=== PATIENT | male | born 1955 | race Caucasian/White ===

== ENCOUNTER 2024-10-02 09:30 | Day surgery (SDC) | payer MEDICARE, MEDICAID, SELFPAY ==
[2024-09-29 08:53] VITALS: BMI 32.9
[2024-09-29 09:33] LABS: Collection Type, Urine Clean Catch
[2024-09-29 09:48] LABS: Basophils % (Auto) 0 % (0-2.5); Eosinophils % (Auto) 1 % (0-10); Hematocrit 46.6 % (41.0-53.0); Hemoglobin 16.5 g/dL (13.5-16.0); Immature Granulocytes % (Auto) 1 % (0-0); Immature Granulocytes Auto 0.03 Thou/mm3 (0.00-0.00); Lymphocytes # (Auto) 2.5 Thou/mm3 (1.0-4.8); Lymphocytes % (Auto) 42 % (10-50); Mean Corpuscular HGB Conc 35.4 g/dl (31.0-37.0); Mean Corpuscular Hemoglobin 30.9 pg (25.0-35.0); Mean Corpuscular Volume 87 fL (80-100); Monocytes # (Auto) 0.4 Thou/mm3 (0.0-0.8); Monocytes % (Auto) 6 % (0-12); Neutrophils # (Auto) 3.1 Thou/mm3 (1.8-7.7); Neutrophils % (Auto) 51 % (37-80); Nucleated Red Blood Cell % 0 /100 WBC (0); Platelet Count 173 Thou/mm3 (140-440); RDW Standard Deviation 37.9 fL (35.1-43.9); Red Blood Count 5.34 Miln/mm3 (4.50-5.90); White Blood Count 6.1 Thou/mm3 (3.8-10.6)
[2024-09-29 09:51] LABS: Bilirubin,Urine Negative (Negative); Blood,Urine Negative (Negative); Clarity,Urine Clear (Clear/Hazy); Color,Urine Lt-Yellow (Lt Yel-Yel); Glucose, Urine Negative (Negative); Ketones,Urine Negative (Negative); Leukocyte Esterase,Urine Negative (Negative); Nitrite,Urine Negative (Negative); PH,Urine 5.5 (5.0-7.0); Protein,Urine Negative (Neg - Trace); RBC,Urine 3 /hpf (0-3); Specific Gravity,Urine 1.025 (1.001-1.035); Squamous Epithelial Cell,Urine 4 /hpf (0-5); Urobilinogen,Urine Negative mg/dL (0.0-1.0); WBC,Urine 4 /hpf (0-5)
[2024-09-29 09:55] LABS: INR 1.1 (0.9-1.3); Partial Thromboplastin Time 28.5 Seconds (22.0-36.0); Prothrombin Time 11.7 Seconds (9.0-12.2)
[2024-09-29 09:58] LABS: Alanine Aminotransferase 43 U/L (10-49); Albumin, Serum 4.7 gm/dL (3.4-4.8); Albumin/Globulin Ratio 1.7 (1.2-2.2); Alkaline Phosphatase 47 U/L (46-116); Anion Gap 9 (7-16); Aspartate Amino Transferase 38 U/L (0-34); BUN/Creatinine Ratio 18 Ratio (12-20); Bilirubin,Total 1.1 mg/dL (0.3-1.2); Blood Urea Nitrogen 14 mg/dL (9-23); Calcium 10.2 mg/dL (8.3-10.6); Calcium (Corrected) 10.2 mg/dL (8.5-10.1); Carbon Dioxide 25.4 mMol/L (20.0-31.0); Chloride 108 mMol/L (98-107); Creatinine (Component) 0.8 mg/dL (0.6-1.3); Estimated Creatinine Clearance 121.2 mL/min (>60); Globulin 2.7 gm/dL (2.3-3.5); Glucose 113 mg/dL (74-106); Osmolality,Calculated 284 (275-295); Potassium 4.2 mMol/L (3.4-5.1); Sodium 142 mMol/L (136-145); Total Protein 7.4 gm/dL (5.7-8.2); eGFR > 60 See Note
--- NOTE | 2024-09-29 14:08 | SUR.PREOP ---
Pt notified to come in at 0930 on Wednesday for surgery.
--- NOTE | 2024-09-29 14:56 | SUR.PREOP ---
Cardiac history and records reviewed with Dr Garrido.
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
[2024-10-02] VITALS (12 sets, daily range): BP systolic 126–174; BP diastolic 86–104; PULSE 62–103; RESP 12–20; TEMP 36.2–36.5; O2SAT 95–100; BMI 32.8
--- NOTE | 2024-10-02 10:03 | SUR.PREOP ---
Patient expressed gratitude for prayer before their procedure.
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
--- NOTE | 2024-10-02 12:30 | SUR.PHASEI ---
1230 Patient arrived to recovery resting comfortably in [facility], on oxygen 8L via oxy mask with an oral airway in place, breathing unlabored, vital signs stable, dressing intact to abdomen; steri-strips, gauze, tegaderm, no bleeding noted, lung sounds clear upon auscultation, bilateral radial pulses present when palpated, report received from Michelle GLOVER/Farhana GLOVER and Dr. Garrido
--- NOTE | 2024-10-02 12:53 | SUR.PHASEI ---
Received report on pt. s/p surgery from Carlene Pelayo RN. Pt. is resting with eyes closed, responds to verbal commands, VSS, lap sites x5 to abd. CDI, lung sounds clear, equal expansion eula., pt. receiving 10 liters 02 via oxymask, weaned to 5 liters 02 and saturation 98%. No c/o pain or nausea at this time.
--- NOTE | 2024-10-02 12:53 | SUR.PHASEI ---
1253 Report given to Kari Black RN
[2024-10-02] MEDS: fentaNYL CIT INJ 50 mCg/ML AMP 2ML IV ×2 (13:16→13:25)
--- NOTE | 2024-10-02 14:37 | SUR.PHASEII ---
1437 Patient meets discharge criteria from recovery, awake and talking with staff, breathing unlabored, vital signs stable, per patient his pain is tolerable, dressing intact; no bleeding noted, patient drinking fluid; with is nausea at a tolerable level, patient assisted with dressing into his clothing by this continuity writer, discharge instructions given to patient and patients son with teach-back approach, both receptive of instructions, patients son signed discharge instructions. Patient given all his belongings prior to discharge, transported via wheelchair and left in a private vehicle.
--- NOTE | 2024-10-04 13:59 | PD.ANESPROG ---
Documentation for date of: 10/04/24 POST ANESTHESIA NOTE: Patient had GETA for lap cholecystectomy on 10/02/24. I just called his number for follow up but no answer. Omi Garrido MD Anesthesia Progress Note Progress Note Most recent Vital Signs: Last Vital Signs Temp 97.1 F 10/02/24 13:40 Pulse 90 10/02/24 14:10 Resp 14 10/02/24 14:10 BP 148/86 H 10/02/24 14:10 Pulse Ox 97 10/02/24 14:10 O2 Flow Rate 3 10/02/24 13:05
== END 2024-10-02 14:37 | disposition home or self-care (01) ==
PROVIDERS: PCP Nurse Practitioner Family; Referring Provider Specialist; Visit Provider Specialist
PROC: 0FT44ZZ Resection of Gallbladder, Percutaneous Endoscopic Approach (ICD-10-PCS; CPT 47562; principal; 2024-10-02 11:30)
DX: K80.10 Calculus of gallbladder with chronic cholecystitis without obstruction (principal); K66.0 Peritoneal adhesions (postprocedural) (postinfection); J44.9 Chronic obstructive pulmonary disease, unspecified; I10 Essential (primary) hypertension; M19.90 Unspecified osteoarthritis, unspecified site; Z82.49 Family history of ischemic heart disease and other diseases of the circulatory system; Z86.73 Personal history of transient ischemic attack (TIA), and cerebral infarction without residual deficits; Z87.891 Personal history of nicotine dependence; Z96.653 Presence of artificial knee joint, bilateral
CPT/HCPCS: 44180; 36415; 80053; 81001; 85025; 85610; 85730; A4217; A4649; J0131; J0694; J1100; J2405; J2704; J2710; J3010; J3490; A9270; J1596; J1805

== ENCOUNTER 2024-10-04 18:37 | Emergency (ER) | payer MEDICARE, MEDICAID, SELFPAY ==
[2024-10-04 18:38] VITALS: BMI 32.8
[2024-10-04 19:46] VITALS: BP 155/96; PULSE 97; RESP 20; TEMP 37.5; O2SAT 95
[2024-10-04 20:07] LABS: Collection Type, Urine Catheter
[2024-10-04 20:12] LABS: Bilirubin,Urine Negative (Negative); Blood,Urine Negative (Negative); Clarity,Urine Clear (Clear/Hazy); Color,Urine Lt-Yellow (Lt Yel-Yel); Culture Indicated,Urine Not Indicated; Glucose, Urine Negative (Negative); Ketones,Urine Negative (Negative); Leukocyte Esterase,Urine Negative (Negative); Nitrite,Urine Negative (Negative); PH,Urine 5.5 (5.0-7.0); Protein,Urine Negative (Neg - Trace); RBC,Urine 3 /hpf (0-3); Squamous Epithelial Cell,Urine 1 /hpf (0-5); Urobilinogen,Urine Negative mg/dL (0.0-1.0); WBC,Urine 1 /hpf (0-5)
--- NOTE | 2024-10-04 22:07 | XR_ITS ---
Examination: CT abdomen and pelvis without contrast. Coronal 3-D reconstructions. Sagittal 2-D reconstructions. Date and time of exam:October 04, 2024 10:50 PM INDICATIONS: Gallbladder surgery September 2023, unable to urinate, unable to pass Crook catheter into the urinary bladder CTDI: vol (mGy): 11.4 DLP: (mGycm): 778 Technique: Axial images of the abdomen have been obtained, 3 mm slice thickness Intravenous contrast material has not been administered. Low dose protocols were performed. One or more of the following dose reduction techniques were used; automated exposure control, adjustment of the mA and/or KV according to patient size, use of iterative reconstruction technique. Findings: No pancreatic or adrenal mass Mild left hydronephrosis Normal appendix No bowel obstruction Distended urinary bladder Prostatomegaly transverse dimension 5.6 cm 2 mm calculus image 233 which appears to be within the prostatic urethra IMPRESSION: Mild left hydronephrosis Significantly distended urinary bladder Prostatomegaly, transverse dimension 5.6 cm Suspicious for 2 mm calculus in the prostatic urethra
--- NOTE | 2024-10-05 01:12 | PD.EDRME ---
Rapid Medical Screening Exam E Arrival date/time: 10/04/24 18:37 69M with history of HTN and recent cholecystectomy by Dr. Bonilla presents to ED with difficulty urinating. Patient has been passing gas and stool. CT showed kidney stone in urethra with unsuccessful irrigation removal. Patient does not want to wait for transfer process as he needs to drive his car back. Chief Complaint: General Adult/Misc Complain Time Seen by Provider: 10/04/24 19:55 Vital signs: Vital Signs Temperature 99.5 F 10/04/24 19:46 Pulse Rate 97 10/04/24 19:46 Respiratory Rate 20 10/04/24 19:46 Blood Pressure 155/96 H 10/04/24 19:46 Pulse Oximetry (%) 95 10/04/24 19:46 Oxygen Delivery Method Room Air 10/04/24 19:46
--- NOTE | 2024-10-05 01:23 | PC.NURSE ---
PATIENT SIGNED AMA FORM PER PROVIDER PATIENT NO LONGER WANT TO WAIT TO COMPLETE TREATMENT REQUESTING TO SIGN AMA.
== END 2024-10-05 01:24 | disposition left against medical advice (07) ==
LOC: SERX 20:06
PROVIDERS: Physician Assistant; Emergency Provider Emergency Medicine; PCP Nurse Practitioner Family
DX: N20.0 Calculus of kidney (principal); Z53.29 Procedure and treatment not carried out because of patient's decision for other reasons
CPT/HCPCS: 74176; 81001; 99281

== ENCOUNTER 2024-10-10 18:46 | Emergency (ER) | payer MEDICARE, MEDICAID, SELFPAY ==
[2024-10-10 18:46] VITALS: BMI 32.8
[2024-10-10 19:51] VITALS: BP 167/93; PULSE 95; RESP 18; TEMP 37.1; O2SAT 96
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
== END 2024-10-10 20:23 | disposition home or self-care (01) ==
PROVIDERS: Emergency Provider Emergency Medicine
DX: Z46.6 Encounter for fitting and adjustment of urinary device (principal); I10 Essential (primary) hypertension; Z90.49 Acquired absence of other specified parts of digestive tract; N20.0 Calculus of kidney; R33.9 Retention of urine, unspecified
CPT/HCPCS: 51702; 99283

== ENCOUNTER 2024-10-11 01:49 | Emergency (ER) | payer MEDICARE, MEDICAID, SELFPAY ==
[2024-10-11 01:50] VITALS: BMI 32.8
[2024-10-11 01:55] VITALS: BP 186/102; PULSE 93; RESP 20; TEMP 36.7; O2SAT 98
[2024-10-11 01:57] VITALS: BP 166/113
[2024-10-11] MEDS: LIDOCAINE JELLY 2% (Urojet) 10 ML TUBE TOP (01:59)
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
== END 2024-10-11 02:21 | disposition home or self-care (01) ==
LOC: SERX 02:09
PROVIDERS: Emergency Provider Emergency Medicine; PCP Nurse Practitioner Family
DX: R33.9 Retention of urine, unspecified (principal)
CPT/HCPCS: 51702; 99283

== ENCOUNTER 2024-10-14 18:50 | Emergency (ER) | payer MEDICARE, MEDICAID, SELFPAY ==
[2024-10-14 18:51] VITALS: BMI 32.8
[2024-10-14 20:02] VITALS: BP 128/76; PULSE 99; RESP 18; TEMP 36.9; O2SAT 98
--- NOTE | 2024-10-14 20:11 | PD.EDMALE ---
ED Male Genitalurinary RME/HPI General Chief complaint: Urogenital-Male Stated complaint: Catheter problems: bloody Time Seen by Provider: 10/14/24 19:53 Arrival date/time: 10/14/24 18:50 RME / HPI RME / HPI Narrative: This section includes all my notes and documentations, including HPI, PE, and ED course. Duy Ybarra MD HPI: 69-year-old male here to be evaluated with several hours of gross hematuria. Has indwelling Crook catheter. Last changed about a week ago. No fever or chills. No abdominal pain or flank pain or back pain. No nausea or vomiting. No other complaints. ROS: All negative except as documented in HPI. Physical Exam: General: Alert and oriented. No acute distress when remaining still. Eyes: Conjunctivae and lids clear. ENT: No nasal congestion. Neck: Supple. Heart: RRR. Lungs: No respiratory distress. Good air movement. No rhonchi, wheezing, rales. Abdomen: Soft and nontender. Normal bowel sounds. No distension. No rebound or guarding. Back: No CVA tenderness. Skin: Warm and dry. Neuro: Alert and oriented X 3. I reviewed all diagnostic test results. My review of the abdominal CT report is no acute findings. Blood tests and urine tests remarkable for UTI and hematuria. At this point, diagnoses include UTI and hematuria. Treatment here included IV fluid and Rocephin and CBI. Significant improvement noted. Recommended a trial of outpatient treatment. Based on my best medical judgment, made decision no further evaluation or treatment indicated at this time. Patient understands and agrees to the discharge instructions customized and printed, see below. Discharge instructions from Dr. Ybarra: 1. After evaluation, you have UTI (see attached handout).? 2. Take cefdinir to kill the germs causing the infection.? Increase oral fluid to flush it out.? Maintain clear urine.? If dark or yellow, increase oral fluid. 3. Your blood in the urine was resolved with irrigation. 4. See a private doctor on 10/18/2024 for recheck.? Ask to check the final urine culture results from today to make sure cefdinir doesn't need to be changed due to resistance. Ask to review all test results and official radiology reports, to make sure you receive all necessary follow-ups and monitoring. 5. Seek immediate medical care with worsening, fever, or with any concerns. Duy Ybarra MD Related Data Home Medications ?Medication ?Instructions ?Recorded ?Confirmed aspirin 81 mg tablet,delayed 81 mg PO QDAY 09/16/20 09/29/24 release Held on 10/02/24. Instructions: Resume on 10/09/24. cyanocobalamin (vitamin B-12) 1,000 mcg PO QDAY 09/16/20 09/29/24 1,000 mcg tablet (Vitamin B-12) clopidogrel 75 mg tablet 75 mg PO DAILY 09/29/24 09/29/24 Held on 10/02/24. Instructions: Resume on 10/09/24. lisinopril 10 mg tablet 10 mg PO DAILY 09/29/24 10/02/24 magnesium citrate 100 mg capsule 250 mg PO QDAY 09/29/24 10/02/24 cholecalciferol (vitamin D3) 50 50 mcg PO QDAY 10/02/24 10/02/24 mcg (2,000 unit) capsule cyanocobalamin (B12)-cobamamide 1 anthony .Route .QD 10/02/24 10/02/24 5,000 mcg-100 mcg sublingual lozenge (B12) ketorolac 0.5 % eye drops 1 drp ophthalmic (eye) 10/02/24 krill oil-hyaluronic 1 cap PO .QD 10/02/24 10/02/24 acid-astaxanthin 353 mg capsule Previous Rx's ?Medication ?Instructions ?Recorded hydrocodone 10 mg-acetaminophen 1 tab PO Q6H PRN pain #20 tabs 10/02/24 325 mg tablet cefdinir 300 mg capsule 300 mg PO BID #14 caps 10/15/24 Allergies Allergy/AdvReac Type Severity Reaction Status Date / Time No Known Allergies Allergy Verified 10/10/24 18:49 Course Quality Measures none Orders Category Date Time Status CT Screening NOW Care 10/14/24 20:14 Active Continuous Bladder Irrigation QSHIFT Care 10/14/24 20:13 Active Crook to [place] Routine Care 10/14/24 20:13 Ordered Saline [Insert IV] NOW Care 10/14/24 20:[address] angio abdomen pelvis Stat Exams 10/14/24 20:14 Taken CBC Stat Lab 10/14/24 20:24 Completed CMP [Comprehensive Metabolic Panel] Stat Lab 10/14/24 20:24 Completed Magnesium Stat Lab 10/14/24 20:24 Completed PT [Prothrombin Time with INR] Stat Lab 10/14/24 20:24 Completed PTT [Partial Thromboplastin Time] Stat Lab 10/14/24 20:24 Completed UA, C/S IF [Urinalysis, C/S if Indicated] Stat Lab 10/14/24 21:05 Completed Urine Culture Stat Lab 10/14/24 21:05 Received Sodium Chloride 0.9% 1000 ml [Ns] 1,000 ml Med 10/14/24 20:12 Discontinued IV 999 mls/hr cefTRIAXone [Rocephin] 1,000 mg Med 10/15/24 01:15 Discontinued SODIUM CHLORIDE 0.9% (Popper) [Ns 0.9% (P)] 50 ml IV X1 Vital Signs Vital signs: Vital Signs Temperature 98.4 F 10/14/24 20:02 Pulse Rate 99 10/14/24 20:02 Respiratory Rate 18 10/14/24 20:02 Blood Pressure 128/76 10/14/24 20:02 Pulse Oximetry (%) 98 10/14/24 20:02 Urogenital - Male Patient data External records reviewed:: [facility] previous records Clinical information provided by:: patient Social determinants that could affect healthcare access:: none Patient has the following chronic illnesses:: Indwelling urinary catheter How is presenting disease/condition affected by chronic disease/condition?: exacerbated by Evaluation data The following diagnostics were reviewed and interpreted by me:: lab results and radiology exam(s) Lab and/or radiology exams considered but not ordered:: None Interpretation Summary: UTI and gross hematuria Medications / Prescriptions Medications or Prescriptions considered but not ordered:: None Medication administrations:: Medication Administration History Discontinued Medications Sodium Chloride (Ns) 1,000 mls @ 999 mls/hr IV .Q1H1M ONE Stop: 10/14/24 21:12 Last Infusion: 10/14/24 21:37 Dose: Infused Documented By: Admin: 10/14/24 20:35 Dose: 999 mls/hr Documented By: CVL Ceftriaxone Sodium 1,000 mg/ (Sodium Chloride) 50 mls @ 100 mls/hr IV X1 ONE Stop: 10/15/24 01:44 Last Infusion: 10/15/24 02:20 Dose: Infused Documented By: Admin: 10/15/24 01:48 Dose: 100 mls/hr Documented By: CVL IV fluid and Rocephin and CBI Consultations Consultation(s) initiated? (list below): No Diagnosis Urogenital Male Differential Diagnosis: urinary tract infection, acute retention of urine and other (Pyelonephritis, ureteral stone, kidney failure, active bleeding) Most likely diagnosis given after review of the tests above:: UTI Admission Indicated Admission indicated?: not indicated Explain why admission is indicated or not indicated:: With significant improvement, there was no indication for admission. Admission Request Was there a request for admission?: No Disposition Plan Disposition Plan: Discharge Discharge Attestation Discharge Attestation: The patient and all family members were given an opportunity to ask questions and understood the discharge instructions. Discharge instructions specifically effects, indications for sooner follow up or return to the emergency department, and the expected course of current diagnosis. Patient condition: Stable Discharge Plan Plan Patient Disposition: HOME (Self Care) Prescriptions/Referrals Prescriptions/Med Rec: New cefdinir 300 mg capsule 300 mg PO BID Qty: 14 0RF No Action aspirin 81 mg Tablet,Delayed Release (Dr/Ec) 81 mg PO QDAY cyanocobalamin (vitamin B-12) [Vitamin B-12] 1,000 mcg Tablet 1,000 mcg PO QDAY clopidogrel 75 mg tablet 75 mg PO DAILY Patient Comments: TAKE 1 TABLET BY MOUTH EVERY DAY FOR 90 DAYS lisinopril 10 mg tablet 10 mg PO DAILY Patient Comments: TAKE 1 TABLET BY MOUTH EVERY DAY magnesium citrate 100 mg capsule 250 mg PO QDAY krill [id number]-[id number] 353 mg capsule 1 cap PO .QD cholecalciferol (vitamin D3) 50 mcg (2,000 unit) capsule 50 mcg PO QDAY B12 5,000-100 mcg lozenge 1 anthony .Route .QD ketorolac 0.5 % drops 1 drp OPHTHALMIC (EYE) Patient Comments: INSTILL 1 DROP INTO RIGHT EYE TWICE A DAY hydrocodone-acetaminophen 10-325 mg tablet 1 tab PO Q6H MDD 3 PRN (Reason: pain) Qty: 20 0RF Referrals: Candace Guardado FNP [Primary Care Provider] - In 1 week Problem List Clinical Impression: Urinary tract infection, Hematuria Patient/Caregiver Discharge Instructions Discharge Activity: activity as tolerated Education Materials: ED Hematuria, ED Bladder Infection, Male (Adult) Additional Instructions: Discharge instructions from Dr. Ybarra: 1. After evaluation, you have UTI (see attached handout).? 2. Take cefdinir to kill the germs causing the infection.? Increase oral fluid to flush it out.? Maintain clear urine.? If dark or yellow, increase oral fluid. 3. Your blood in the urine was resolved with irrigation. 4. See a private doctor on 10/18/2024 for recheck.? Ask to check the final urine culture results from today to make sure cefdinir doesn't need to be changed due to resistance. Ask to review all test results and official radiology reports, to make sure you receive all necessary follow-ups and monitoring. 5. Seek immediate medical care with worsening, fever, or with any concerns. Print Language: [place] Stand Alone Forms: Sandy Award Info., Patient Portal Info Letter
--- NOTE | 2024-10-14 20:14 | XR_ITS ---
Examination: CTA abdomen, with intravenous contrast. CTA pelvis, with intravenous contrast. 2-D sagittal and coronal reconstructions. 3-D reconstructions. Date and time of exam: October 15, 2024 0105 hours INDICATIONS: Severe hematuria today CTDI vol (mgy) 14.5 DLP (MGycm) 1033 Technique: Multiple CTA images, 2.0 mm slice thickness, obtained , abdomen, pelvis, with the high-resolution 64 slice scanner. 60 cc Isovue 370 is administered intravenously. Sagittal and coronal 2-D reconstructions are obtained. 3-D reconstructions, angiographic images are obtained. 3-D postprocessing, including vascular maximum intensity projections. Low dose protocols were performed. One or more of the following dose reduction techniques were used; automated exposure control, adjustment of the mA and/or KV according to patient size, use of iterative reconstruction technique. Findings: Diffuse fatty infiltration throughout the liver Mild splenomegaly No pancreatic mass Mild left hydronephrosis secondary to 6 mm distal left ureterovesical junction calculus Marked thickening of the urinary bladder Normal appendix IMPRESSION: Mild left hydronephrosis secondary to 6 mm distal left ureterovesical junction calculus
[2024-10-14] MEDS: SODIUM CHLORIDE 0.9% 1000 ML 1,000 ML 999 ML IV (20:35)
[2024-10-14 20:46] LABS: Basophils % (Auto) 0 % (0-2.5); Eosinophils # (Auto) 0.1 Thou/mm3 (0.0-0.5); Eosinophils % (Auto) 1 % (0-10); Hematocrit 39.1 % (41.0-53.0); Hemoglobin 13.9 g/dL (13.5-16.0); Immature Granulocytes % (Auto) 1 % (0-0); Immature Granulocytes Auto 0.03 Thou/mm3 (0.00-0.00); Lymphocytes # (Auto) 1.7 Thou/mm3 (1.0-4.8); Lymphocytes % (Auto) 32 % (10-50); Mean Corpuscular HGB Conc 35.5 g/dl (31.0-37.0); Mean Corpuscular Hemoglobin 30.8 pg (25.0-35.0); Mean Corpuscular Volume 87 fL (80-100); Monocytes # (Auto) 0.5 Thou/mm3 (0.0-0.8); Monocytes % (Auto) 9 % (0-12); Neutrophils # (Auto) 3.1 Thou/mm3 (1.8-7.7); Neutrophils % (Auto) 58 % (37-80); Nucleated Red Blood Cell % 0 /100 WBC (0); Platelet Count 190 Thou/mm3 (140-440); RDW Standard Deviation 35.9 fL (35.1-43.9); Red Blood Count 4.52 Miln/mm3 (4.50-5.90); White Blood Count 5.4 Thou/mm3 (3.8-10.6)
[2024-10-14 20:54] LABS: Alanine Aminotransferase 30 U/L (10-49); Albumin, Serum 4.2 gm/dL (3.4-4.8); Albumin/Globulin Ratio 1.7 (1.2-2.2); Alkaline Phosphatase 63 U/L (46-116); Anion Gap 9 (7-16); Aspartate Amino Transferase 25 U/L (0-34); BUN/Creatinine Ratio 16 Ratio (12-20); Bilirubin,Total 0.5 mg/dL (0.3-1.2); Blood Urea Nitrogen 16 mg/dL (9-23); Calcium 9.6 mg/dL (8.3-10.6); Calcium (Corrected) 9.6 mg/dL (8.5-10.1); Carbon Dioxide 24.6 mMol/L (20.0-31.0); Chloride 109 mMol/L (98-107); Estimated Creatinine Clearance 96.9 mL/min (>60); Globulin 2.5 gm/dL (2.3-3.5); Glucose 100 mg/dL (74-106); Osmolality,Calculated 286 (275-295); Sodium 143 mMol/L (136-145); Total Protein 6.7 gm/dL (5.7-8.2); eGFR > 60 See Note
[2024-10-14 20:56] VITALS: BP 146/86; PULSE 70; RESP 18; TEMP 36.9; O2SAT 98
[2024-10-14 21:24] LABS: Partial Thromboplastin Time 26.7 Seconds (22.0-36.0); Prothrombin Time 10.2 Seconds (9.0-12.2)
[2024-10-14 21:28] LABS: Collection Type, Urine Clean Catch; Squamous Epithelial Cell,Urine 0 /hpf (0-5)
[2024-10-14 21:38] LABS: Bilirubin,Urine Negative (Negative); Blood,Urine 3+ (Negative); Glucose, Urine Negative (Negative); Ketones,Urine Negative (Negative); Leukocyte Esterase,Urine Positive (Negative); Nitrite,Urine Positive (Negative); Protein,Urine 2+ (Neg - Trace); RBC,Urine 6829 /hpf (0-3); Specific Gravity,Urine 1.017 (1.001-1.035); Urobilinogen,Urine Negative mg/dL (0.0-1.0); WBC,Urine 132 /hpf (0-5)
[2024-10-14 21:39] LABS: Clarity,Urine Turbid (Clear/Hazy); Color,Urine Yellow (Lt Yel-Yel); Culture Indicated,Urine Yes
[2024-10-14 23:28] VITALS: BP 133/75; PULSE 74; RESP 16; TEMP 37.1; O2SAT 97
[2024-10-15 01:32] VITALS: BP 145/85; PULSE 74; RESP 16; TEMP 37.3; O2SAT 95
[2024-10-15] MEDS: cefTRIAXone 1,000 MG in SODIUM CHLORIDE 0.9% (Popper) 50 ML 100 MG IV (01:48)
--- NOTE | 2024-10-15 02:25 | PRELIM_ITS ---
CT angiogram of abdomen and pelvis with intravenous contrast (axial sections with sagittal and coronal reformats) October 15, 2024 at 0103 hours Clinical History: Severe hematuria. Comparison: None available at the time of this report. Findings: The abdominal aorta demonstrates mild atheromatous calcification without evidence of dissection or aneurysm. The celiac, superior mesenteric, inferior mesenteric and bilateral renal arteries are patent to the extent visualized. The common iliac, external iliac and internal iliac arteries are patent bilaterally. The pancreas and adrenals are unremarkable. Left UVJ stone measuring 0.6 cm, the stone is not visible on the shell assembler image, mild left hydroureteronephrosis, delayed left nephrogram. Bilateral renal simple cysts . S/p cholecystectomy. No biliary ductal dilatation. Splenomegaly with craniocaudal diameter of 16.8 cm. Hepatomegaly. Fat stranding peripheral to the umbilical scar. No evidence of bowel obstruction. No evidence of appendicitis. Crook catheter in place. The urinary bladder is not distended, limited evaluation, probable thickening of the urinary bladder wall, air within the urinary bladder. There is no free fluid, free air or abscess. The osseous structures are unremarkable. The lung bases are clear. Impression: 1. Left UVJ stone associated with hydroureteronephrosis and delayed nephrogram. 2. No evidence of abdominal aortic dissection or aneurysm. 3. Probable cystitis. Please, correlate clinically. 4. Hepatosplenomegaly, of uncertain etiology. 5. Inflammatory changes peripheral umbilical scar, please correlate clinically to assess for omphalitis. Report Electronically Signed By: Waldemar Ray 10/15/2024 2:24:22 AM [EST]
[2024-10-15 02:58] VITALS: RESP 18
== END 2024-10-15 02:59 | disposition home or self-care (01) ==
PROVIDERS: Emergency Provider Emergency Medicine; PCP Nurse Practitioner Family
DX: N39.0 Urinary tract infection, site not specified (principal); R31.0 Gross hematuria
CPT/HCPCS: 36415; 74174; 80053; 81001; 83735; 85025; 85610; 85730; 87077; 87086; 87186; 96361; 96365; 99285; A4649; J0696; J7030; J7050; Q9967

== ENCOUNTER 2024-10-19 11:33 | Emergency (ER) | payer MEDICARE, MEDICAID, SELFPAY ==
[2024-10-19 11:46] VITALS: BP 128/78; PULSE 105; RESP 20; TEMP 37; O2SAT 96; BMI 32.1
--- NOTE | 2024-10-19 15:27 | PC.NURSE ---
FC intact and patent, draining to gravity with leg bag. patient states that FC disconnected from leg bag and when he reconnected he was not sure if he did it correctly. FC attached to leg bag correctly and draining. Patient states he has urology appointment on Dec 05 2024.
--- NOTE | 2024-10-26 07:16 | PD.EDMALE ---
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 Patient requesting for us to check his urinary catheter. No concerns of dysuria hematuria no flank fever. Mode of arrival: ambulatory Limitations: no limitations Related Data Home Medications ?Medication ?Instructions ?Recorded ?Confirmed aspirin 81 mg tablet,delayed 81 mg PO QDAY 09/16/20 09/29/24 release Held on 10/02/24. Instructions: Resume on 10/09/24. cyanocobalamin (vitamin B-12) 1,000 mcg PO QDAY 09/16/20 09/29/24 1,000 mcg tablet (Vitamin B-12) clopidogrel 75 mg tablet 75 mg PO DAILY 09/29/24 09/29/24 Held on 10/02/24. Instructions: Resume on 10/09/24. lisinopril 10 mg tablet 10 mg PO DAILY 09/29/24 10/02/24 magnesium citrate 100 mg capsule 250 mg PO QDAY 09/29/24 10/02/24 cholecalciferol (vitamin D3) 50 50 mcg PO QDAY 10/02/24 10/02/24 mcg (2,000 unit) capsule cyanocobalamin (B12)-cobamamide 1 anthony .Route .QD 10/02/24 10/02/24 5,000 mcg-100 mcg sublingual lozenge (B12) ketorolac 0.5 % eye drops 1 drp ophthalmic (eye) 10/02/24 krill oil-hyaluronic 1 cap PO .QD 10/02/24 10/02/24 acid-astaxanthin 353 mg capsule Previous Rx's ?Medication ?Instructions ?Recorded hydrocodone 10 mg-acetaminophen 1 tab PO Q6H PRN pain #20 tabs 10/02/24 325 mg tablet cefdinir 300 mg capsule 300 mg PO BID #14 caps 10/15/24 Allergies Allergy/AdvReac Type Severity Reaction Status Date / Time No Known Allergies Allergy Verified 10/19/24 11:35 Review of Systems Review of Systems Systems Reviewed: All systems reviewed, normal except as documented Narrative Review of Systems: Gen: No fever, no chills, no weight loss EYES: No discharge, no visual changes, no pain HEENT: No ear pain, no congestion, no sore throat PULM: No shortness of breath, no cough, no congestion CV: No chest pain, no dyspnea on exertion, no palpitations GI: No nausea, no vomiting, no diarrhea, no pain, no constipation : No frequency, no urgency,? no dysuria Musc/skel: No joint pain, no back pain Skin: No rash? ED Exam General Limitations: Present no limitations General appearance: Present alert and in no apparent distress Head Head exam: Present atraumatic Eye Eye exam: Present normal appearance, PERRL and EOMI ENT ENT exam: Present normal exam, normal oropharynx and mucous membranes moist Neck Neck exam: Present normal inspection, full ROM and trachea midline Chest Chest inspection: Present normal inspection and symmetric chest wall rise Respiratory Respiratory exam: Present normal lung sounds bilaterally Cardiovascular Cardiovascular exam: Present regular rate, normal rhythm and normal heart sounds Abdominal Exam Abdominal exam: Present soft and normal bowel sounds Extremities Exam Extremities exam: Present normal inspection and full ROM Back Exam Back exam: Present normal inspection and full ROM Neurological Exam Neurological exam: Present alert, oriented X3 and CN II-XII intact Psychiatric Psychiatric exam: Present normal affect and normal mood Skin Skin exam: Present warm, dry, intact and normal color Course Quality Measures none Vital Signs Vital signs: Vital Signs Temperature 98.6 F 10/19/24 11:46 Pulse Rate 105 H 10/19/24 11:46 Respiratory Rate 20 10/19/24 11:46 Blood Pressure 128/78 10/19/24 11:46 Pulse Oximetry (%) 96 10/19/24 11:46 Oxygen Delivery Method Room Air 10/19/24 11:46 Urogenital - Male MDM Narrative MDM Narrative:: Crook catheter care provided, flowing well. No dysfunction. Advised to follow-up with his urologist ER precautions given Patient data External records reviewed:: [facility] previous records Clinical information provided by:: patient Social determinants that could affect healthcare access:: none Patient has the following chronic illnesses:: CAD, hypertension, BPH How is presenting disease/condition affected by chronic disease/condition?: exacerbated by Evaluation data The following diagnostics were reviewed and interpreted by me:: other (specify) Lab and/or radiology exams considered but not ordered:: no Interpretation Summary: no Medications / Prescriptions Medications or Prescriptions considered but not ordered:: no Medication administrations:: no Consultations Consultation(s) initiated? (list below): No Diagnosis Urogenital Male Differential Diagnosis: acute retention of urine and other (Crook care, Crook catheter problem.) Most likely diagnosis given after review of the tests above:: Crook care, Crook catheter problem. Admission Indicated Admission indicated?: not indicated Admission Request Was there a request for admission?: No Disposition Plan Disposition Plan: Discharge Discharge Attestation Discharge Attestation: The patient and all family members were given an opportunity to ask questions and understood the discharge instructions. Discharge instructions specifically effects, indications for sooner follow up or return to the emergency department, and the expected course of current diagnosis. Patient condition: Stable Discharge Plan Plan Patient Disposition: HOME (Self Care) Patient condition on transfer: Stable Prescriptions/Referrals Prescriptions/Med Rec: No Action aspirin 81 mg Tablet,Delayed Release (Dr/Ec) 81 mg PO QDAY cyanocobalamin (vitamin B-12) [Vitamin B-12] 1,000 mcg Tablet 1,000 mcg PO QDAY clopidogrel 75 mg tablet 75 mg PO DAILY Patient Comments: TAKE 1 TABLET BY MOUTH EVERY DAY FOR 90 DAYS lisinopril 10 mg tablet 10 mg PO DAILY Patient Comments: TAKE 1 TABLET BY MOUTH EVERY DAY magnesium citrate 100 mg capsule 250 mg PO QDAY krill [id number] 353 mg capsule 1 cap PO .QD cholecalciferol (vitamin D3) 50 mcg (2,000 unit) capsule 50 mcg PO QDAY B12 5,000-100 mcg lozenge 1 anthony .Route .QD ketorolac 0.5 % drops 1 drp OPHTHALMIC (EYE) Patient Comments: INSTILL 1 DROP INTO RIGHT EYE TWICE A DAY hydrocodone-acetaminophen 10-325 mg tablet 1 tab PO Q6H MDD 3 PRN (Reason: pain) Qty: 20 0RF cefdinir 300 mg capsule 300 mg PO BID Qty: 14 0RF Referrals: Candace Guardado FNP [Primary Care Provider] - In 1 week Problem List Clinical Impression: Crook catheter problem Patient/Caregiver Discharge Instructions Discharge Activity: activity as tolerated Education Materials: ED Crook Catheter, Care Additional Instructions: Please follow-up with your urologist or primary doctor. Drink plenty of fluids. Keep hydrated. return the emergency department if you have any worsening symptoms or change in condition. Print Language: Slovenian Stand Alone Forms: Sandy Award Info., Patient Portal Info Letter PA/THERAPEUTIC RADIOLOGIST Supervising Physician PA/ANDREAS Supervising Physician: dr rivas
== END 2024-10-19 15:29 | disposition home or self-care (01) ==
PROVIDERS: Emergency Provider Emergency Medicine; PCP Nurse Practitioner Family
DX: T83.098A Other mechanical complication of other urinary catheter, initial encounter (principal); Y84.6 Urinary catheterization as the cause of abnormal reaction of the patient, or of later complication, without mention of misadventure at the time of the procedure
CPT/HCPCS: 81001; 99281

== ENCOUNTER 2024-11-12 01:45 | Emergency (ER) | payer MEDICARE, MEDICAID, SELFPAY ==
[2024-11-12 01:46] VITALS: BMI 32.8
[2024-11-12 01:58] VITALS: BP 151/90; PULSE 100; RESP 19; TEMP 37.1; O2SAT 97
--- NOTE | 2024-11-12 03:16 | EDNOTE_ITS ---
<Statement entered by Nguyen Veras MD - 01/19/25 19:09> As co-signing physician, I was present and available for consult prn. I concur with the plan and care as documented by the midlevel provider. ED Male Genitalurinary RME/HPI General Chief complaint: Urogenital-Male Stated complaint: GARCIA NOT DRAINING FOR COUPLE HOURS Time Seen by Provider: 11/12/24 02:35 Arrival date/time: 11/12/24 01:45 RME / HPI RME / HPI Narrative: 69-year-old male presents to the ED with a complaint of his urinary catheter not draining. He states he went to bed tonight at approximately 8 PM and was frequently awakened by a pressure type feeling in his pelvis. He noticed he has had no drainage into his Garcia catheter bag for the past 2 hours. He denies any fever or chills, nausea or vomiting, diarrhea or abdominal pain. He has an appointment with his urologist this coming Wednesday. Related Data Home Medications ?Medication ?Instructions ?Recorded ?Confirmed aspirin 81 mg tablet,delayed 81 mg PO QDAY 09/16/20 release Held on 10/02/24. Instructions: Resume on 10/09/24. cyanocobalamin (vitamin B-12) 1,000 mcg PO QDAY 09/29/24 1,000 mcg tablet (Vitamin B-12) clopidogrel 75 mg tablet 75 mg PO DAILY 09/29/2409/10 Held on 10/02/24. Instructions: Resume on 10/09/24. lisinopril 10 mg tablet 10 mg PO DAILY 09/29/2409/10 magnesium citrate 100 mg capsule 250 mg PO QDAY 10/02/24 cholecalciferol (vitamin D3) 50 50 mcg PO QDAY 5 10/02/24 mcg (2,000 unit) capsule cyanocobalamin (B12)-cobamamide 1 anthony .Route .QD 10/0210/02/24 5,000 mcg-100 mcg sublingual lozenge (B12) ketorolac 0.5 % eye drops 1 drp ophthalmic (eye) 10/02 krill oil-hyaluronic 1 cap PO .QD 10/02/24 acid-astaxanthin 353 mg capsule Previous Rx's ?Medication ?Instructions ?Recorded hydrocodone 10 mg-acetaminophen 1 tab PO Q6H PRN pain #20 tabs 10/02/24 325 mg tablet cefdinir 300 mg capsule 300 mg PO BID #14 caps 10/15 ciprofloxacin HCl 500 mg tablet 500 mg PO BID #14 tabs 11/27/24 (Cipro) Allergies Allergy/AdvReac Type Severity Reaction Status Date / Time No Known Allergies Allergy Verified 11/27/24 09:05 Review of Systems Review of Systems Systems Reviewed: All systems reviewed, normal except as documented Past Medical History Past Medical History NEUROLOGIC: Positive Neurological Disorders, Cerebrovascular Accident and Transient Ischemic Attacks (TIA); Negative Seizures CARDIAC: Positive Cardiac Disorders, Hypertension and Varicose Veins; Negative Congestive Heart Failure RESPIRATORY: Positive Tuberculosis; Negative Chronic Obstructive Pulmonary Disease (COPD) or Asthma GASTROINTESTINAL: Positive Gastrointestinal Disorders; Negative Hepatitis GENITOURINARY: Negative Genitourinary Disorders or Renal Disease MUSCULOSKELETAL: Positive Musculoskeletal Disorders and Arthritis ENT: Positive Cataracts and Glaucoma ENDOCRINE: Negative Endocrine Disorders, Diabetes Mellitus Type 1 or Diabetes Mellitus Type 2 HEMATOLOGIC: Negative Blood Disorders or Sickle Cell Disease OTHER HISTORY: Positive Hospitalization, Chicken Pox, Measles and Cancer; Negative Autoimmune Disease, Shingles, Blood Transfusions, Blood Transfusion Reaction or Anesthesia Reactions Family History FAMILY HISTORY: Positive Family Cardiac Disorders, Family Cancer and Family Surgery; Negative Family Psychiatric Problems, Family Respiratory Disorders, Family Gastrointestinal Problems or Family Anesthesia Reaction Surgical History SURGICAL: Positive Ear Surgery, Eye Surgery and Abdominal Surgery Social History SMOKING STATUS: Never smoker SUBSTANCE USE: does not use ED Exam Narrative Physical exam: Alert and oriented 69 year old male, no acute distress. BP elevated at 151/90, otherwise normal vitals. Lungs are clear. RRR. Abdomen is soft with pressure feeling to his suprapubic area. Garcia not draining. Course Course Course Narrative: Urinalysis reveals Turbid sarah urine with 2+ protein, 3+ blood, +nitrites, + leukocyte estrace, 827 RBC's, 669 WBC's, and 1+ bacteria. He was given Rocephin 2gm IM prior to discharge. Quality Measures none Orders Category Date Time Status Urinalysis Stat Lab 11/12/24 03:15 Completed Urine Culture Stat Lab 11/12/24 03:15 Completed cefTRIAXone [Rocephin] 2 gm Med 11/12/24 04:22 Discontinued Lidocaine 1% 20 ml [Xylocaine 1% 20 ML] 4.2 ml IM X1 Vital Signs Vital signs: Vital Signs Temperature 98.7 F 11/12/24 01:58 Pulse Rate 100 11/12/24 01:58 Respiratory Rate 19 11/12/24 01:58 Blood Pressure 151/90 H 11/12/24 01:58 Pulse Oximetry (%) 97 11/12/24 01:58 Oxygen Delivery Method Room Air 11/12/24 01:58 Urogenital - Male MDM Narrative MDM Narrative:: 69-year-old male presents to the ED with a complaint of his urinary catheter not draining. He states he went to bed tonight at approximately 8 PM and was frequently awakened by a pressure type feeling in his pelvis. He noticed he has had no drainage into his Garcia catheter bag for the past 2 hours. He denies any fever or chills, nausea or vomiting, diarrhea or abdominal pain. He has an appointment with his urologist this coming Wednesday. Alert and oriented 69 year old male, no acute distress. BP elevated at 151/90, otherwise normal vitals. Lungs are clear. RRR. Abdomen is soft with pressure feeling to his suprapubic area. Garcia not draining. Urinalysis reveals Turbid sarah urine with 2+ protein, 3+ blood, +nitrites, + leukocyte estrace, 827 RBC's, 669 WBC's, and 1+ bacteria. He was given Rocephin 2gm IM prior to discharge. Patient data External records reviewed:: None Clinical information provided by:: patient Social determinants that could affect healthcare access:: none Patient has the following chronic illnesses:: CAUTI How is presenting disease/condition affected by chronic disease/condition?: caused by Evaluation data The following diagnostics were reviewed and interpreted by me:: lab results Lab and/or radiology exams considered but not ordered:: n/a Interpretation Summary: As above Medications / Prescriptions Medications or Prescriptions considered but not ordered:: n/a Medication administrations:: Medication Administration History Discontinued Medications Ceftriaxone Sodium 2 gm/ (Lidocaine HCl 4.2 ml) 0 gm IM X1 ONE Stop: 11/12/24 04:23 Last Admin: 11/12/24 04:37 Dose: 4.2 mg Documented By: OA Rocephin Consultations Consultation(s) initiated? (list below): No Diagnosis Urogenital Male Differential Diagnosis: acute retention of urine Most likely diagnosis given after review of the tests above:: CAUTI Admission Indicated Admission indicated?: not indicated Admission Request Was there a request for admission?: No Admission Attestation Admission request attestation: Stable for discharge. Disposition Plan Disposition Plan: Discharge Discharge Attestation Discharge Attestation: The patient and all family members were given an opportunity to ask questions and understood the discharge instructions. Discharge instructions specifically effects, indications for sooner follow up or return to the emergency department, and the expected course of current diagnosis. Patient condition: Stable Discharge Plan Plan Patient Disposition: HOME (Self Care) Discharge Disposition comment: Stable and Improved Prescriptions/Referrals Prescriptions/Med Rec: No Action aspirin 81 mg Tablet,Delayed Release (Dr/Ec) 81 mg PO QDAY cyanocobalamin (vitamin B-12) [Vitamin B-12] 1,000 mcg Tablet 1,000 mcg PO QDAY clopidogrel 75 mg tablet 75 mg PO DAILY Patient Comments: TAKE 1 TABLET BY MOUTH EVERY DAY FOR 90 DAYS lisinopril 10 mg tablet 10 mg PO DAILY Patient Comments: TAKE 1 TABLET BY MOUTH EVERY DAY magnesium citrate 100 mg capsule 250 mg PO QDAY krill [id number] 353 mg capsule 1 cap PO .QD cholecalciferol (vitamin D3) 50 mcg (2,000 unit) capsule 50 mcg PO QDAY B12 5,000-100 mcg lozenge 1 anthony .Route .QD ketorolac 0.5 % drops 1 drp OPHTHALMIC (EYE) Patient Comments: INSTILL 1 DROP INTO RIGHT EYE TWICE A DAY hydrocodone-acetaminophen 10-325 mg tablet 1 tab PO Q6H MDD 3 PRN (Reason: pain) Qty: 20 0RF cefdinir 300 mg capsule 300 mg PO BID Qty: 14 0RF ciprofloxacin HCl [Cipro] 500 mg tablet 500 mg PO BID Qty: 14 0RF Referrals: Candace Guardado FNP [Primary Care Provider] - In 1 week Problem List Clinical Impression: Catheter-associated urinary tract infection Patient/Caregiver Discharge Instructions Education Materials: Catheter-Linked Urinary Tract ... Additional Instructions: Take the antibiotics as prescribed and complete the course even though you may be feeling better. A urine culture is being performed on your urinalysis. Your antibiotics may need to be changed. Keep your appointment with your urologist on Wednesday. Follow-up with your primary care physician in 24 to 48 hours. Return to the ED for any new or worsening symptoms. Print Language: Latvian Stand Alone Forms: Sandy Award Info., Patient Portal Info Letter PA/HVAC SHEET METAL INSTALLER Supervising Physician PA/HVAC SHEET METAL INSTALLER Supervising Physician: Dr. Veras
[2024-11-12 03:18] LABS: Collection Type, Urine Catheter; Squamous Epithelial Cell,Urine 0 /hpf (0-5)
[2024-11-12 03:29] LABS: Bacteria,Urine 1+; Bilirubin,Urine Negative (Negative); Blood,Urine 3+ (Negative); Glucose, Urine Negative (Negative); Ketones,Urine Negative (Negative); Leukocyte Esterase,Urine Positive (Negative); Nitrite,Urine Positive (Negative); Protein,Urine 2+ (Neg - Trace); RBC,Urine 827 /hpf (0-3); Specific Gravity,Urine 1.019 (1.001-1.035); Uric Acid Crystals,Urine 3+; Urobilinogen,Urine Negative mg/dL (0.0-1.0); WBC,Urine 669 /hpf (0-5)
[2024-11-12 03:47] LABS: Clarity,Urine Turbid (Clear/Hazy); Color,Urine Amber (Lt Yel-Yel)
[2024-11-12 04:13] VITALS: BP 138/100; PULSE 104; RESP 18; TEMP 36.6; O2SAT 96
[2024-11-12] MEDS: cefTRIAXone 2 GM, LIDOCAINE 1% 20 ML 4.2 ML IM (04:37)
== END 2024-11-12 04:38 | disposition home or self-care (01) ==
PROVIDERS: Physician Assistant; Emergency Provider Emergency Medicine; PCP Nurse Practitioner Family
DX: T83.511A Infection and inflammatory reaction due to indwelling urethral catheter, initial encounter (principal); N39.0 Urinary tract infection, site not specified; Y84.6 Urinary catheterization as the cause of abnormal reaction of the patient, or of later complication, without mention of misadventure at the time of the procedure
CPT/HCPCS: 81001; 87077; 87086; 87186; 96372; 99283; J0696; J3490

== ENCOUNTER 2024-11-27 09:00 | Emergency (ER) | payer MEDICARE, MEDICAID, SELFPAY ==
[2024-11-27 09:01] VITALS: BMI 32.8
--- NOTE | 2024-11-27 09:36 | PD.EDRME ---
Rapid Medical Screening Exam RME Arrival date/time: 11/27/24 09:00 69-year-old male with a history of BPH, hypertension presents to the emergency room with a chief complaint of weakness, intermittent fevers x 3 days. Patient states he would also like a urinary catheter change. I have greeted and performed a focused initial assessment of this patient. A comprehensive ED assessment and evaluation of the patient, analysis of all test results, and completion of the medical decision making process will be conducted by additional ED providers. Chief Complaint: Nausea/Vomiting/Diarrhea Time Seen by Provider: 11/27/24 09:22 Vital signs reviewed by provider: Yes
[2024-11-27 09:37] VITALS: BP 121/86; PULSE 116; RESP 20; TEMP 37.8; O2SAT 96; BMI 32.8
[2024-11-27 10:01] LABS: Basophils % (Auto) 0 % (0-2.5); Eosinophils % (Auto) 0 % (0-10); Hematocrit 44.1 % (41.0-53.0); Hemoglobin 15.6 g/dL (13.5-16.0); Immature Granulocytes % (Auto) 1 % (0-0); Immature Granulocytes Auto 0.06 Thou/mm3 (0.00-0.00); Lymphocytes # (Auto) 0.6 Thou/mm3 (1.0-4.8); Lymphocytes % (Auto) 6 % (10-50); Mean Corpuscular HGB Conc 35.4 g/dl (31.0-37.0); Mean Corpuscular Hemoglobin 30.4 pg (25.0-35.0); Mean Corpuscular Volume 86 fL (80-100); Monocytes # (Auto) 0.4 Thou/mm3 (0.0-0.8); Monocytes % (Auto) 4 % (0-12); Neutrophils # (Auto) 8.2 Thou/mm3 (1.8-7.7); Neutrophils % (Auto) 89 % (37-80); Nucleated Red Blood Cell % 0 /100 WBC (0); Platelet Count 160 Thou/mm3 (140-440); RDW Standard Deviation 37.8 fL (35.1-43.9); Red Blood Count 5.14 Miln/mm3 (4.50-5.90); White Blood Count 9.3 Thou/mm3 (3.8-10.6)
[2024-11-27 10:23] LABS: INR 1.1 (0.9-1.3); Partial Thromboplastin Time 27.1 Seconds (22.0-36.0); Prothrombin Time 11.8 Seconds (9.0-12.2)
[2024-11-27 10:24] LABS: Alanine Aminotransferase 35 U/L (10-49); Albumin, Serum 4.7 gm/dL (3.4-4.8); Alkaline Phosphatase 44 U/L (46-116); Anion Gap 14 (7-16); Aspartate Amino Transferase 26 U/L (0-34); BUN/Creatinine Ratio 19 Ratio (12-20); Bilirubin,Total 1.4 mg/dL (0.3-1.2); Blood Urea Nitrogen 19 mg/dL (9-23); Calcium 9.3 mg/dL (8.3-10.6); Calcium (Corrected) 9.3 mg/dL (8.5-10.1); Carbon Dioxide 19.6 mMol/L (20.0-31.0); Chloride 104 mMol/L (98-107); Estimated Creatinine Clearance 96.9 mL/min (>60); Globulin 2.3 gm/dL (2.3-3.5); Glucose 157 mg/dL (74-106); Osmolality,Calculated 280 (275-295); Potassium 3.9 mMol/L (3.4-5.1); Sodium 138 mMol/L (136-145); eGFR > 60 See Note
[2024-11-27 11:10] VITALS: BP 144/86; PULSE 115; RESP 18; TEMP 38.2; O2SAT 95
[2024-11-27 14:33] VITALS: BP 127/85; PULSE 107; RESP 18; TEMP 37.1; O2SAT 96
--- NOTE | 2024-11-27 14:39 | PC.NURSE ---
PT IN TODAY FOR NAUSEA AND CHANGE OF CATHETER. PT STATES THAT HE ALSO HAD DIARRHEA LAST NIGHT. PT HAD CATHETER CHANGED 2 WEEKS AGO HERE IN THE ER. PT IS SCHEDULED TO SEE A UROLOGIST IN 2 WEEKS. PT IS A/O AT THIS TIME AND IS AT BEDSIDE. PT AWAITING TO BE SEEN BY .
--- NOTE | 2024-11-27 15:04 | PD.EDADULT ---
ED General RME/HPI General Chief complaint: Nausea/Vomiting/Diarrhea Stated complaint: BRUISE ON MY R BACK N/V SINCE LAST NIGHT Time Seen by Provider: 11/27/24 09:22 Arrival date/time: 11/27/24 09:00 CC: Intermittent fevers , and I want my Crook catheter changed HPI fevers started last night. Patient states baseline temperature is 97.4, he said patient's temperature moises to 98.6. Currently patient states he is not febrile. Patient has had an indwelling catheter since cholecystectomy performed end september secondary to urinary retention and dribbling. Last Crook change was 2 weeks ago. Patient denies chest pain shortness of breath difficulty breathing nausea or vomiting. RME / HPI RME / HPI narrative: 11/27/24 09:00 69-year-old male with a history of BPH, hypertension presents to the emergency room with a chief complaint of weakness, intermittent fevers x 3 days. Patient states he would also like a urinary catheter change. I have greeted and performed a focused initial assessment of this patient. A comprehensive ED assessment and evaluation of the patient, analysis of all test results, and completion of the medical decision making process will be conducted by additional ED providers. Related Data Home Medications ?Medication ?Instructions ?Recorded ?Confirmed aspirin 81 mg tablet,delayed 81 mg PO QDAY 09/16/20 09/29/24 release Held on 10/02/24. Instructions: Resume on 10/09/24. cyanocobalamin (vitamin B-12) 1,000 mcg PO QDAY 09/16/20 09/29/24 1,000 mcg tablet (Vitamin B-12) clopidogrel 75 mg tablet 75 mg PO DAILY 09/29/24 09/29/24 Held on 10/02/24. Instructions: Resume on 10/09/24. lisinopril 10 mg tablet 10 mg PO DAILY 09/29/24 10/02/24 magnesium citrate 100 mg capsule 250 mg PO QDAY 09/29/24 10/02/24 cholecalciferol (vitamin D3) 50 50 mcg PO QDAY 10/02/24 10/02/24 mcg (2,000 unit) capsule cyanocobalamin (B12)-cobamamide 1 anthony .Route .QD 10/02/24 10/02/24 5,000 mcg-100 mcg sublingual lozenge (B12) ketorolac 0.5 % eye drops 1 drp ophthalmic (eye) 10/02/24 krill oil-hyaluronic 1 cap PO .QD 10/02/24 10/02/24 acid-astaxanthin 353 mg capsule Previous Rx's ?Medication ?Instructions ?Recorded hydrocodone 10 mg-acetaminophen 1 tab PO Q6H PRN pain #20 tabs 10/02/24 325 mg tablet cefdinir 300 mg capsule 300 mg PO BID #14 caps 10/15/24 ciprofloxacin HCl 500 mg tablet 500 mg PO BID #14 tabs 11/27/24 (Cipro) Allergies Allergy/AdvReac Type Severity Reaction Status Date / Time No Known Allergies Allergy Verified 11/27/24 09:05 Review of Systems Review of Systems Narrative Review of Systems: GEN: + Subjective fever, no chills, no weight loss EYES: No discharge, no visual changes, no pain HEENT: No ear pain, no congestion, no sore throat PULM: No shortness of breath, no cough, no congestion CV: No chest pain, no dyspnea on exertion, no palpitations GI: No nausea, no vomiting, no diarrhea, no pain, no constipation : No frequency, no urgency, no dysuria MUSC/SKEL: No joint pain, no back pain SKIN: No rash PSYCH: No hallucinations, no depression HEME/LYMPH: No easy bleeding or bruising tendencies NEURO: No weakness, no headache Past Medical History Past Medical History NEUROLOGIC: Positive Neurological Disorders and Cerebrovascular Accident; Negative Seizures CARDIAC: Positive Cardiac Disorders, Hypertension and Varicose Veins; Negative Congestive Heart Failure RESPIRATORY: Positive Tuberculosis; Negative Chronic Obstructive Pulmonary Disease (COPD) or Asthma GASTROINTESTINAL: Positive Gastrointestinal Disorders; Negative Hepatitis GENITOURINARY: Negative Genitourinary Disorders or Renal Disease MUSCULOSKELETAL: Positive Musculoskeletal Disorders and Arthritis ENT: Positive Cataracts and Glaucoma ENDOCRINE: Negative Endocrine Disorders, Diabetes Mellitus Type 1 or Diabetes Mellitus Type 2 HEMATOLOGIC: Negative Blood Disorders or Sickle Cell Disease OTHER HISTORY: Positive Hospitalization, Chicken Pox, Measles and Cancer; Negative Autoimmune Disease, Shingles, Blood Transfusions, Blood Transfusion Reaction or Anesthesia Reactions Family History FAMILY HISTORY: Positive Family Cardiac Disorders, Family Cancer and Family Surgery; Negative Family Psychiatric Problems, Family Respiratory Disorders, Family Gastrointestinal Problems or Family Anesthesia Reaction Surgical History SURGICAL: Positive Eye Surgery and Abdominal Surgery Social History SMOKING STATUS: Never smoker SUBSTANCE USE: does not use ED Exam Narrative Physical exam: [General: Obese not in any cute distress Head normocephalic HEENT: Within acceptable limits Neck is supple nontender Chest equal chest rise nontender to palpation Respiratory: Clear to auscultation no wheezes crackles or rubs CV: Rate rhythm is regular no murmurs rubs or clicks Abdomen is distended secondary to body habitus soft nontender no masses positive bowel sounds all 4 quadrants : Crook catheter emerging from the meatus without any leaking or bleeding. Turbid urine draining into the drainage bag. Back: No CVA tenderness no spinous process tenderness from cervical spine thoracic and lumbar spine Skin: Intact no petechiae rash induration ulceration or crepitus Extremities: Moving all extremity against resistance cap refill less than 2 seconds neurosensory intact Neuro: Awake alert oriented x3 Glascow coma 15 no focal deficits] Course Course Course Narrative: I suspect early UTI will treat the patient Quality Measures none Orders Category Date Time Status Crook [Urinary Catheter] QS Care 11/27/24 09:36 Active CBC Stat Lab 11/27/24 09:48 Completed CMP [Comprehensive Metabolic Panel] Stat Lab 11/27/24 09:48 Completed PT [Prothrombin Time with INR] Stat Lab 11/27/24 09:48 Completed PTT [Partial Thromboplastin Time] Stat Lab 11/27/24 09:48 Completed UA [Urinalysis] Stat Lab 11/27/24 15:12 Completed Urine Culture Stat Lab 11/27/24 15:10 Received [id number] [Rocephin] 1,000 mg Med 11/27/24 15:56 Ordered Lidocaine 1% 20 ml [Xylocaine 1% 20 ML] 2.1 ml IM X1 Vital Signs Vital signs: Vital Signs Temperature 100.0 F 11/27/24 09:37 Pulse Rate 116 H 11/27/24 09:37 Respiratory Rate 20 11/27/24 09:37 Blood Pressure 121/86 H 11/27/24 09:37 Pulse Oximetry (%) 96 11/27/24 09:37 Oxygen Delivery Method Room Air 11/27/24 09:37 Discharge Plan Plan Patient Disposition: HOME (Self Care) Patient condition on transfer: Stable Prescriptions/Referrals Prescriptions/Med Rec: New ciprofloxacin HCl [Cipro] 500 mg tablet 500 mg PO BID Qty: 14 0RF No Action aspirin 81 mg Tablet,Delayed Release (Dr/Ec) 81 mg PO QDAY cyanocobalamin (vitamin B-12) [Vitamin B-12] 1,000 mcg Tablet 1,000 mcg PO QDAY clopidogrel 75 mg tablet 75 mg PO DAILY Patient Comments: TAKE 1 TABLET BY MOUTH EVERY DAY FOR 90 DAYS lisinopril 10 mg tablet 10 mg PO DAILY Patient Comments: TAKE 1 TABLET BY MOUTH EVERY DAY magnesium citrate 100 mg capsule 250 mg PO QDAY krill [id number] 353 mg capsule 1 cap PO .QD cholecalciferol (vitamin D3) 50 mcg (2,000 unit) capsule 50 mcg PO QDAY B12 5,000-100 mcg lozenge 1 anthony .Route .QD ketorolac 0.5 % drops 1 drp OPHTHALMIC (EYE) Patient Comments: INSTILL 1 DROP INTO RIGHT EYE TWICE A DAY hydrocodone-acetaminophen 10-325 mg tablet 1 tab PO Q6H MDD 3 PRN (Reason: pain) Qty: 20 0RF cefdinir 300 mg capsule 300 mg PO BID Qty: 14 0RF Referrals: Candace Guardado FNP [Primary Care Provider] - In 1 week Problem List Clinical Impression: Catheter-associated urinary tract infection Impression comment: Take the medications as prescribed follow-up with your primary care doctor Patient/Caregiver Discharge Instructions Education Materials: ED Bladder Infection, Male (Adult) Print Language: Kyrgyz Stand Alone Forms: Sandy Award Info., Patient Portal Info Letter MERY/ANDREAS Supervising Physician MERY/ANDREAS Supervising Physician: Damien Sinclair ENP [facility] Clinical Information Provided by: patient and spouse Medical Records reviewed [facility] Meds/Rx considered, not ordered None Labs/Rad/Tests considered, not ordered None Chronic Illness/Social Conditions Explain: Cholecystectomy in September 2024. Labs Labs: interpreted by ia Lab(s) Interpretation(s): CBC shows no acute leukocytosis anemia thrombocytopenia Coags within acceptable limits CMP shows CO2 of 19.6, glucose of 157, otherwise no other significant electrolyte imbalances Urine is turbid 1+ protein 2+ blood RBCs at 189 WBCs at 139 leukocyte Estrace positive nitrite negative rare bacteria
[2024-11-27 15:17] LABS: Collection Type, Urine Clean Catch
[2024-11-27 15:41] LABS: Bacteria,Urine Rare; Bilirubin,Urine Negative (Negative); Blood,Urine 2+ (Negative); Clarity,Urine Turbid (Clear/Hazy); Color,Urine Yellow (Lt Yel-Yel); Glucose, Urine Negative (Negative); Ketones,Urine Negative (Negative); Leukocyte Esterase,Urine Positive (Negative); Nitrite,Urine Negative (Negative); PH,Urine 5.5 (5.0-7.0); Protein,Urine 1+ (Neg - Trace); RBC,Urine 198 /hpf (0-3); Squamous Epithelial Cell,Urine 3 /hpf (0-5); Urobilinogen,Urine Negative mg/dL (0.0-1.0); WBC,Urine 139 /hpf (0-5)
[2024-11-27 16:07] VITALS: BP 140/89; PULSE 100; RESP 18; TEMP 37.8; O2SAT 95
[2024-11-27] MEDS: cefTRIAXone 1,000 MG, LIDOCAINE 1% 20 ML 2.1 ML IM (16:15)
[2024-11-27 16:29] VITALS: BP 140/89; PULSE 100; O2SAT 96
== END 2024-11-27 16:30 | disposition home or self-care (01) ==
PROVIDERS: Nurse Practitioner Family; Emergency Provider Emergency Medicine; PCP Nurse Practitioner Family
DX: T83.511A Infection and inflammatory reaction due to indwelling urethral catheter, initial encounter (principal); Y84.6 Urinary catheterization as the cause of abnormal reaction of the patient, or of later complication, without mention of misadventure at the time of the procedure
CPT/HCPCS: 51702; 36415; 80053; 81001; 85025; 85610; 85730; 87077; 87086; 87186; 96372; 99283; J0696; J3490

== ENCOUNTER → 2024-12-06 | Outpatient (CLI) | payer MEDICARE, MEDICAID, SELFPAY ==
--- NOTE | 2024-12-06 08:00 | XR_ITS ---
Examination: CT chest, without intravenous contrast. Sagittal and coronal 2-D reconstructions. Exam date and time: December 06, 2024 0752 hours INDICATIONS: History tuberculosis 25 years ago, [address] chest 03/17/2024 bilateral pulmonary nodules CTDI:vol (mGy) 17 DLP: (mGycm) 726 Technique: Multiple 3.0 mm axial sections of the chest to been obtained. Bone and lung density settings are obtained. Sagittal and coronal 2-D reconstructions have been obtained. Low dose protocols were performed. One or more of the following dose reduction techniques were used; automated exposure control, adjustment of the mA and/or KV according to patient size, use of iterative reconstruction technique. Findings: AP dimension ascending thoracic aorta 3.9 cm Pulmonary artery segments are not enlarged No paratracheal tracheobronchial or bronchopulmonary adenopathy Stable bilateral pulmonary nodules, no new pulmonary nodules No pneumonia or pulmonary edema Liver is irregular in contour with fatty infiltration Splenomegaly Absent gallbladder No pancreatic mass Kidneys partially visualized no hydronephrosis IMPRESSION: Stable bilateral pulmonary nodules No new pulmonary nodules
== END | disposition home or self-care (01) ==
LOC: CCTX 07:39
PROVIDERS: PCP Nurse Practitioner Family; Referring Provider Nurse Practitioner Family; Visit Provider Nurse Practitioner Family
DX: R91.8 Other nonspecific abnormal finding of lung field (principal)
CPT/HCPCS: 71250

== ENCOUNTER → 2025-04-02 | Outpatient (CLI) | payer MEDICARE, MEDICAID, SELFPAY ==
--- NOTE | 2025-04-02 14:15 | XR_ITS ---
Examination: Left elbow 3 views Technique: Elbow AP, oblique, lateral 3 views Exam date and time: April 02, 2025 1412 hours INDICATIONS: Elbow swelling and pain beginning 6 months ago. FINDINGS: Moderate osteopenia. No fracture or dislocation. Soft tissue swelling dorsum of the elbow IMPRESSION: Consider ultrasound soft tissue of the elbow follow-up to confirm olecranon bursitis.
== END | disposition home or self-care (01) ==
PROVIDERS: PCP Nurse Practitioner Family; Referring Provider Nurse Practitioner Gerontology; Visit Provider Nurse Practitioner Gerontology
DX: M25.522 Pain in left elbow (principal)
CPT/HCPCS: 73080